=== PATIENT | female | born 1945 | race Two or more races ===

== ENCOUNTER → 2019-06-12 | Outpatient (CLI) | payer OTHER ==
[~2019-06-12] MED LIST: CIPRO500 MG PO; Cozaar PO; DOCUSATE SODIU100 MG PO; FAMOTIDINE20 MG PO; LIPITOR20 MG PO; PLAVIX 75MG PO
== END | disposition home or self-care (01) ==
LOC: RAD 11:06
DX: J20.8 Acute bronchitis due to other specified organisms (principal)